=== PATIENT | male | born 1965 | race Caucasian/White ===

== ENCOUNTER 2022-08-23 06:05 | Day surgery (SDC) | payer BC ==
[~2022-08-23] VITALS: Ht 180.3 cm; Wt 83.7 kg
[2022-08-23] MEDS ORDERED: BACL10 PO (06:44)
[2022-08-23] MEDS ORDERED: NAPR500 PO (06:45)
[2022-08-23] MEDS ORDERED: Alprazolam0.5 MG PO (06:46)
--- NOTE | 2022-08-23 07:26 | NUR ---
08/23/22 0790 Denisse Ramirez CALL LIGHT WITHIN REACH. NO FURTHER QUESTIONS AT THIS TIME.
--- NOTE | 2022-08-23 08:31 | NUR ---
08/23/22 0831 Obdulia Gonzalez 1MG OF EPI ADDED TO FIRST 3L BAG OF LR USED FOR JOINT IRRIGATION DURING CASE.
--- NOTE | 2022-08-23 09:46 | NUR ---
08/23/22 0946 Apollo Serna PT INITIALLY WOKE UP THRASHING AND MOVING L ARM. INITIAL B/P'S LIKELY INFLATED.
[2022-08-23 10:03] VITALS: BP 148/93
--- NOTE | 2022-08-23 10:47 | NUR ---
08/23/22 1047 ELSY LINK ATTEMPT TO FLUSH IV, NOT PATENT AT THIS TIME. WILL REMOVE. PT EATING CRACKERS AND SODA FOR NAUSEA. STATES HE IS JUST HUNGRY.
== END 2022-08-23 11:35 | disposition home or self-care (01) ==
LOC: ORSCSDS 06:05
PROVIDERS: Orthopaedic Surgery
PROC: 0LM14ZZ Reattachment of Right Shoulder Tendon, Percutaneous Endoscopic Approach (ICD-10-PCS; principal; 2022-08-23 07:30)
DX: M75.121 Complete rotator cuff tear or rupture of right shoulder, not specified as traumatic (principal); M75.41 Impingement syndrome of right shoulder; M19.011 Primary osteoarthritis, right shoulder; F41.9 Anxiety disorder, unspecified; Z79.899 Other long term (current) drug therapy
CPT/HCPCS: C1713; J0171; J0690; J1100; J1885; J2250; J2405; J2704; J3010; J7120